=== PATIENT | male | born 2000 | race Caucasian/White ===

== ENCOUNTER 2021-06-14 16:03 | Emergency (ER) | payer MEDICAID, SELFPAY ==
--- NOTE | ~2021-06-14 | CT_ITS ---
EXAMINATION: CT CERVICAL SPINE WITHOUT CONTRAST CLINICAL INFORMATION: Fall. COMPARISON: None TECHNIQUE: Axial images obtained through the cervical spine. Coronal and sagittal reformatted images are performed at the CT scanner This CT examination was performed using dose optimization techniques as appropriate, variously including the following: *Automated exposure control *Adjustment of mA and/or kV according to patient size (this includes techniques or standardized protocols for targeted exams where dose is matched to indication/reason for exam; i.e. extremities or head) *Use of iterative reconstruction technique DLP: 423 mGy-cm FINDINGS: Cervical vertebrae have normal height and alignment. No fracture. No prevertebral soft tissue swelling. Cervical disc heights are normal. The facet joints are normal. Central canal maintained. Neural foramina are open. No abnormalities soft tissues of neck. Lung apices normally aerated. CT/CT cervical spine wo con IMPRESSION: Normal CT cervical spine. Fleischner guidelines were followed.
--- NOTE | ~2021-06-14 | CT_ITS ---
EXAMINATION: CT HEAD WITHOUT CONTRAST CLINICAL INFORMATION: Headache. Dizziness. Head trauma. Fall. COMPARISON: None TECHNIQUE: Contiguous axial imaging was performed from the skull base to vertex without intravenous administration of contrast. Coronal and sagittal reformatted images are performed at CT scanner This CT examination was performed using dose optimization techniques as appropriate, variously including the following: *Automated exposure control *Adjustment of mA and/or kV according to patient size (this includes techniques or standardized protocols for targeted exams where dose is matched to indication/reason for exam; i.e. extremities or head) *Use of iterative reconstruction technique DLP: 716 mGy-cm FINDINGS: There are multiple sites of bilateral intraparenchymal acute hemorrhage. . Largest intraparenchymal hemorrhage is in the inferior right frontal lobe. This measures about 4.8 cm AP. There is mass effect from this parenchymal bleed with a right to left shift of the midline structures about 1 cm. There are additional multiple focal parenchymal hemorrhages in the right frontal lobe and parietal lobe. There is also a small hemorrhage in the posterior right temporal lobe. There are smaller scattered intraparenchymal hemorrhage on the left. There is a small focal parenchymal hemorrhage in the left parietal-occipital lobe measuring about 1 cm. Smaller but multifocal areas of hemorrhage present in the inferior left frontal lobe. There is a scalp hematoma the posterior left vertex. No skull fracture. Leija-white differentiation is maintained. No hydrocephalus. CT/CT head/brain wo con IMPRESSION: Multifocal bilateral supratentorial intraparenchymal hemorrhage. There is midline shift from right to left of about 1 cm. This critical result was discussed with Dr. Self on 06/14/2021, 9:07 PM and it was ascertained that the content and urgency of the report was understood at the time of direct communication.
[2021-06-14 16:31] VITALS: BP 136/92; PULSE 47; RESP 18; TEMP 36.9; O2SAT 100; BMI 22.4
--- NOTE | 2021-06-14 20:48 | ED.HEATRA ---
HPI - Head Injury General Chief complaint: Head Injury Stated complaint: head INJ/vomiting Time Seen by Provider: 06/14/21 20:25 Source: patient Mode of arrival: ambulatory Limitations: no limitations History of Present Illness HPI Narrative: Patient comes to the emergency room complaining of a head injury. Earlier today he was riding an electric skateboard. This happened around 14:20. Patient hit a rock, fell backwards and hit the side of his head, he was not wearing helmet. Patient is not sure if he lost consciousness. Patient has been having a headache since then and has vomited multiple times. The mother states that he is talking a bit slower than usual but otherwise patient has no neurological deficits. Before arriving to the emergency room, patient was taken by his mother to the primary care physician. He was instructed to come to the emergency room for further evaluation. Related Data Home Medications Medication Instructions Recorded Confirmed No Known Home Meds 06/14/21 06/14/21 Allergies Allergy/AdvReac Type Severity Reaction Status Date / Time No Known Allergies Allergy Unverified 11/26/19 17:26 Review of Systems Review of Systems: Constitutional : No Weight loss, No Fever, No Chills, No Night Sweats, No Fatigue, No Malaise ENT/Mouth : No Hearing loss, No Ear Pain, No Nasal Congestion, No Sinus Pain, No Hoarseness, No sore throat, No Rhinorrhea, No Swallowing Difficulty Eyes: No Eye Pain, No Swelling, No Redness, No Foreign Body, No Discharge, No Vision Changes Cardiovascular : No Chest Pain, No SOB, No Dyspnea on Exertion, No Orthopnea, No Edema, No Palpitations Respiratory : No Cough, No Sputum, No Wheezing, No Smoke Exposure, No Dyspnea Gastrointestinal : No Nausea, No Vomiting, No Diarrhea, No Constipation, No abdominal Pain, No Hematochezia, No Melena Genitourinary : no irregular bleeding, No Dysuria, No Urinary Frequency, No Hematuria, No Urinary Incontinence, No Urgency, No Flank Pain, No Urinary Flow Changes, No Hesitancy Musculoskeletal : No joint pain, No Myalgias, No Joint Swelling Skin : No Skin Lesions, No rash Neuro : No Weakness, No Numbness, No Paresthesias, No Loss of Consciousness, No Dizziness 1 complaining of headache Psych : No Anxiety/Panic, No Depression, No SI/HI/AH/VH, No Social Issues, Heme/Lymph: No Bruising, No Bleeding,No Lymphadenopathy Endocrine : No Polyuria, No Polydipsia, No Temperature Intolerance ON LICENSE OF [facility] Past Medical History Medical History No known health problems Social History Social History Alcohol intake: current Alcohol intake frequency: 0-2 drinks per day Advance Directives: No Advance Directives Information Provided: No Physical Exam Vital Signs: Vital Signs: Last Vital Signs Temp 98.5 F 06/14/21 21:13 Pulse 60 06/14/21 21:22 Resp 12 06/14/21 21:22 BP 123/58 L 06/14/21 21:22 Pulse Ox 98 06/14/21 21:22 BMI result Body Mass Index 22.4 Const: Other: Appearance: Alert. Oriented X3. No acute distress. Eyes: Pupils equal, round and reactive to light. ENT: Pharynx normal. Neck: Normal inspection. Neck supple. No lymph nodes noted. No crepitus CVS: Normal heart rate and rhythm. Pulses normal. Normal S1 and S2 Respiratory: No respiratory distress. Breath sounds normal. No Wheezing. No rales Abdomen: Soft and nontender. No rigidity. No distention. Skin: Skin warm and dry. Normal skin color. Normal skin turgor. Extremities: Left hand strength 3/5, and right hand 5/5, bilateral 5/5 strength in lower extremities Neuro: Oriented X 3. No motor deficit. No sensory deficit. Moving all extremities. No slurred speech. CN 2 through 12 grossly intact Psych: calm, cooperative, normal affect Course Course Course Narrative: Patient's GCS is 15, patient ambulated from the waiting room to his room with steady gait Complaining of mild headache, patient was given 1 dose of Zofran and 1 mg of morphine. Patient is a bit somnolent but easily arousable. Patient conversing with his mother. Patient states that other than having headache and feeling nauseous, he feels otherwise well I discussed the diagnosis with the patient his mother, patient is being transferred to [facility]. Dr. Bustillos is the accepting physician, patient is being transferred to ED to ED MDM - Head Injury Lab Data Result diagrams: 06/14/21 20:49 06/14/21 20:49 Labs: Lab Results 06/14/21 06/14/21 06/14/21 Range/Units 20:49 20:49 20:49 WBC 17.7 H (4.8-10.8) X10*3/uL RBC 4.55 L (4.60-5.80) X10*6/uL Hgb 14.5 (14.0-18.0) g/dl Hct 42.5 (42.0-52.0) % MCV 93.4 (80.0-98.0) fL MCH 31.9 (27.0-33.0) pg MCHC 34.1 (31.0-36.0) g/dl RDW 12.1 (11.0-16.0) % Plt Count 233 (160-400) X10*3/uL MPV 9.7 (9.4-12.4) fL Immature Gran % (Auto) 0.6 H (0.0-0.4) % Neut % (Auto) 88.9 H (45-73) % Lymph % (Auto) 4.3 L (20-40) % [place] % (Auto) 5.9 (2-11) % Eos % (Auto) 0.1 (0-4) % Baso % (Auto) 0.2 (0-2) % Lymph # (Auto) 0.8 L (1.2-4.9) X10*3/uL [place] # (Auto) 1.1 (0.1-1.2) X10*3/uL Eos # (Auto) 0.0 (0.0-0.4) X10*3/uL Baso # (Auto) 0.0 (0.0-0.2) X10*3/uL Abs Immat Gran (auto) 0.10 H (0.00-0.03) X10*3/uL Absolute Neuts (auto) 15.7 H (2.0-8.3) x10*3/uL Absolute Nucleated RBC 0.000 (0.0-0.012) X10*3/uL Nucleated RBC % (auto) 0.0 (0.0-0.2) /100WBC PT 10.8 (9.9-13.0) SEC INR 1.0 (0.9-1.1) Sodium 138 (135-145) mmol/L Potassium 3.8 (3.3-5.1) mmol/L Chloride 102 (96-108) mmol/L Carbon Dioxide 23 (22-29) mmol/L Anion Gap 17 (12-20) BUN 9 (9-16) mg/dL Creatinine 0.80 (0.5-1.4) mg/dL Estim Creat Clear Calc 143.7 Estimated GFR > 60 Random Glucose 116 H (60-115) mg/dL Calcium 9.4 (8.4-10.2) mg/dL Total Bilirubin 0.9 (0.0-1.0) mg/dL AST 41 H (5-37) U/L ALT 35 (0-40) U/L Alkaline Phosphatase 60 (39-117) U/L Total Protein 8.1 H (6.5-8.0) g/dL Albumin 5.1 H (3.5-5.0) g/dL Ethyl Alcohol mg/dL COVID-19 (LORE) (Negative) COVID-19 Clin Com 06/14/21 06/14/21 Range/Units 20:49 20:49 WBC (4.8-10.8) X10*3/uL RBC (4.60-5.80) X10*6/uL Hgb (14.0-18.0) g/dl Hct (42.0-52.0) % MCV (80.0-98.0) fL MCH (27.0-33.0) pg MCHC (31.0-36.0) g/dl RDW (11.0-16.0) % Plt Count (160-400) X10*3/uL MPV (9.4-12.4) fL Immature Gran % (Auto) (0.0-0.4) % Neut % (Auto) (45-73) % Lymph % (Auto) (20-40) % [place] % (Auto) (2-11) % Eos % (Auto) (0-4) % Baso % (Auto) (0-2) % Lymph # (Auto) (1.2-4.9) X10*3/uL [place] # (Auto) (0.1-1.2) X10*3/uL Eos # (Auto) (0.0-0.4) X10*3/uL Baso # (Auto) (0.0-0.2) X10*3/uL Abs Immat Gran (auto) (0.00-0.03) X10*3/uL Absolute Neuts (auto) (2.0-8.3) x10*3/uL Absolute Nucleated RBC (0.0-0.012) X10*3/uL Nucleated RBC % (auto) (0.0-0.2) /100WBC PT (9.9-13.0) SEC INR (0.9-1.1) Sodium (135-145) mmol/L Potassium (3.3-5.1) mmol/L Chloride (96-108) mmol/L Carbon Dioxide (22-29) mmol/L Anion Gap (12-20) BUN (9-16) mg/dL Creatinine (0.5-1.4) mg/dL Estim Creat Clear Calc Estimated GFR Random Glucose (60-115) mg/dL Calcium (8.4-10.2) mg/dL Total Bilirubin (0.0-1.0) mg/dL AST (5-37) U/L ALT (0-40) U/L Alkaline Phosphatase (39-117) U/L Total Protein (6.5-8.0) g/dL Albumin (3.5-5.0) g/dL Ethyl Alcohol < 10 mg/dL COVID-19 (LORE) Negative (Negative) COVID-19 Clin Com See Note Imaging Data CT scan - head: Radiologist's impression: here are multiple sites of bilateral intraparenchymal acute hemorrhage. . Largest intraparenchymal hemorrhage is in the inferior right frontal lobe. This measures about 4.8 cm AP. There is mass effect from this parenchymal bleed with a right to left shift of the midline structures about 1 cm. There are additional multiple focal parenchymal hemorrhages in the right frontal lobe and parietal lobe. There is also a small hemorrhage in the posterior right temporal lobe. There are smaller scattered intraparenchymal hemorrhage on the left. There is a small focal parenchymal hemorrhage in the left parietal-occipital lobe measuring about 1 cm. Smaller but multifocal areas of hemorrhage present in the inferior left frontal lobe. There is a scalp hematoma the posterior left vertex. No skull fracture. Leija-white differentiation is maintained. No hydrocephalus. CT/CT head/brain wo con IMPRESSION: Multifocal bilateral supratentorial intraparenchymal hemorrhage. There is midline shift from right to left of about 1 cm. Critical Care Time Critical Care Time Critical Care Time: Yes Total Critical Care Time: 45 Attestation: Please follow-up with your primary care physician tomorrow. If you have any worsening or new symptoms, please return to the emergency room or call 911 Discharge Plan Discharge Clinical Impression: Traumatic cerebral intraparenchymal hemorrhage Patient Disposition: Xfer [facility] Transfer Details: [facility] Prescriptions: No Action No Known Home Meds 0RF
[2021-06-14 20:55] LABS: MANUAL DIFF FLAG NO
[2021-06-14 20:58] VITALS: RESP 16
[2021-06-14] MEDS: ondansetron HCL 4 MG/2 ML VIAL IVPUSH (20:58)
[2021-06-14] MEDS: Morphine Sulfate 2 MG/ML CARTRIDGE 1 MG IVPUSH (20:58)
[2021-06-14 21:10] LABS: Basophils Percent Auto 0.2 % (0-2); Eosinophils Percent Auto 0.1 % (0-4); Hematocrit 42.5 % (42.0-52.0); Hemoglobin 14.5 g/dl (14.0-18.0); Imm Gran Pct Auto 0.6 % (0.0-0.4); Lymphocytes Absolute Auto 0.8 X10*3/uL (1.2-4.9); Lymphocytes Percent Auto 4.3 % (20-40); Mean Corpuscular HGB Conc 34.1 g/dl (31.0-36.0); Mean Corpuscular Hemoglobin 31.9 pg (27.0-33.0); Mean Corpuscular Volume 93.4 fL (80.0-98.0); Mean Platelet Volume 9.7 fL (9.4-12.4); Monocytes Absolute Auto 1.1 X10*3/uL (0.1-1.2); Monocytes Percent Auto 5.9 % (2-11); Neutrophils Absolute Auto 15.7 x10*3/uL (2.0-8.3); Neutrophils Percent Auto 88.9 % (45-73); Platelet Count 233 X10*3/uL (160-400); Red Blood Count 4.55 X10*6/uL (4.60-5.80); Red Cell Distribution Width 12.1 % (11.0-16.0); White Blood Count 17.7 X10*3/uL (4.8-10.8)
[2021-06-14 21:12] LABS: COVID-19 Test Negative (Negative)
[2021-06-14 21:13] VITALS: BP 123/60; PULSE 56; RESP 18; TEMP 36.9; O2SAT 98
[2021-06-14 21:13] LABS: Ethanol < 10 mg/dL
[2021-06-14 21:16] LABS: Alanine Aminotransferase 35 U/L (0-40); Albumin Level 5.1 g/dL (3.5-5.0); Alkaline Phosphatase 60 U/L (39-117); Anion Gap 17 (12-20); Aspartate Amino Transferase 41 U/L (5-37); Bilirubin Total 0.9 mg/dL (0.0-1.0); Blood Urea Nitrogen 9 mg/dL (9-16); Calcium 9.4 mg/dL (8.4-10.2); Carbon Dioxide 23 mmol/L (22-29); Chloride 102 mmol/L (96-108); Creatinine Clr Calc Pharmacy 143.7; Estimated Glomerular Filt Rate > 60; Glucose Random 116 mg/dL (60-115); Potassium 3.8 mmol/L (3.3-5.1); Sodium 138 mmol/L (135-145); Total Protein 8.1 g/dL (6.5-8.0)
[2021-06-14 21:22] VITALS: BP 123/58; PULSE 60; RESP 12; O2SAT 98
[2021-06-14 21:24] LABS: Prothrombin Time 10.8 SEC (9.9-13.0)
--- NOTE | 2021-06-14 21:46 | PC.NURSE ---
report called to miko at [facility]. ALS here to transport patient to [facility] ER. all belongings sent with mom
== END 2021-06-14 21:48 | disposition short-term general hospital (02) ==
PROVIDERS: Physician Assistant; Emergency Provider Emergency Medicine
DX: S06.379A Contusion, laceration, and hemorrhage of cerebellum with loss of consciousness of unspecified duration, initial encounter (principal); R40.2410 Glasgow coma scale score 13-15, unspecified time; G44.309 Post-traumatic headache, unspecified, not intractable; M54.2 Cervicalgia; W01.0XXA Fall on same level from slipping, tripping and stumbling without subsequent striking against object, initial encounter; Y93.9 Activity, unspecified; Y92.9 Unspecified place or not applicable; Y99.9 Unspecified external cause status; Z20.822 Contact with and (suspected) exposure to COVID-19
CPT/HCPCS: 36415; 70450; 72125; 80053; 82077; 85025; 85610; 87635; 96374; 96375; 99285; 99291; J2270; J2405

== ENCOUNTER 2023-05-29 11:04 | Outpatient (REF) | payer MEDICAID, SELFPAY ==
[2023-05-29 13:26] LABS: Anion Gap 13 (12-20); Blood Urea Nitrogen 10 mg/dL (9-16); Calcium 9.6 mg/dL (8.4-10.2); Carbon Dioxide 27 mmol/L (22-29); Chloride 103 mmol/L (96-108); Estimated Glomerular Filt Rate > 60; Glucose Random 119 mg/dL (60-115); Potassium 4.4 mmol/L (3.3-5.1); Sodium 139 mmol/L (135-145)
[2023-05-29 13:44] LABS: TSH reflex Free T4 0.68 uIU/mL (0.32-4.0)
[2023-05-29 14:37] LABS: Folate 6.3 ng/mL (> or = 4.0); Vitamin B12 379 pg/mL (200-900)
[2023-06-02 09:14] LABS: RPR Rapid Plasma Reagin NON-REACTIVE (NON-REACTIVE)
[2023-06-04 14:28] LABS: Vitamin B1 <6 nmol/L (8-30)
== END 2023-05-29 11:05 | disposition home or self-care (01) ==
LOC: HO.CHCLDS 11:04
PROVIDERS: Visit Provider Internal Medicine
DX: F41.9 Anxiety disorder, unspecified (principal); R41.3 Other amnesia
CPT/HCPCS: 36415; 80048; 82607; 82746; 84425; 84443; 86592

== ENCOUNTER 2024-10-07 13:11 | Outpatient (REF) | payer MEDICAID, SELFPAY ==
--- OUTSIDE RECORDS SUMMARY | 2024-10-07 13:43 | XMS_ITS | Encounter Summary ---
Author Organization [employer] Address [address] [facility] [address] [place] [address] Care Team Providers Care Older Worker Specialist Name Role Phone Kelly Palm MD Primary Care Provider [phone] Encounter Details Date Type Department Care Team ([facility] st Contact Info) Description 06/05/2023 Orders Only [facility] MED & PEDS [address] [place], [place] [phone] Kelly Palm MD [address] [place], [place] [phone] Vitamin B1 deficiency (Primary Dx) Social History Tobacco Use Types Packs/Day Years Used Date Smoking Tobacco: Every Day Cigarettes Smokeless Tobacco: Never Housing Stability Answer Date Recorded What is your housing situation today? I have hany mclean 05/28/[address] you li ve. Do you have problems with any of the following? None of the above 05/28/2023 Food Insecurity Answer Date Recorded Within the past 12 months, y ou worried that your food would run out before you got money to buy more: Never True 02/13/2023 Within the past 12 months,th e food you bought just didn't last and you didn't have enough money to get more: Never True 08/2022 Transportation Answer Date Recorded In the past 12 months, has l ack of transportation kept you from medical appts, meetings, work or from getting things needed for daily living? No 12/28/2022 Utilities Answer Date Recorded In the past 12 months, has t he electric, gas, oil or water company threatened to shut off services in your home? No 12/28/2022 Sex and Gender Information Value Date Recorded Sex Assigned at Male 01/08/2022 10:19 AM EDT Legal Sex Male 10:19 AM EDT Gender Identity Choose not to disclose 10:19 AM EDT Sexual Orientation Choose not to disclose 2021 10:19 AM EDT documented as of this encounter Plan of Treatment Not on file documented as of this encounter Visit Diagnoses Diagnosis Vitamin B1 deficiency- Primary Other and unspecified manifestations of thiamine deficiency documented in this encounter Care Teams Older Worker Specialist Relationship Specialty Start Date End Date Kelly Palm MD [address] [place] [id number] PCP - General Internal Medicine 05/29/23 Viola David Teaching YoungTransfer Agent 08/12/24 documented as of this encounter
--- OUTSIDE RECORDS SUMMARY | 2024-10-07 13:43 | XMS_ITS | Clinical Summary ---
Author Organization [facility] Address [address] [place] [id number] Phone Care Team Providers Care Body Mechanic Apprentice Name Role Phone Unknown, Unknown Primary Care Provider Yaima mccray Social History Tobacco Use Types Packs/Day Years Used Date Smoking Tobacco: Never Assessed Sex and Gender Information Value Date Recorded Sex Assigned at Not on file Legal Sex Male 12:51 PM EDT Gender Identity Not on file Sexual Orientation Not on file Plan of Treatment Not on file Medical Devices Not on file Insurance [facility] C[facility] C[facility] C[facility] C[facility] C3 ACO Care Teams Body Mechanic Apprentice Relationship Specialty Start Date End Date Unknown, Unknown, PCP - General 06/27/21 Additional Source Comments The information contained in this document represents components of the legal health record. It is not the complete legal health record.[facility]
[2024-10-07 15:06] LABS: Alanine Aminotransferase 33 U/L (0-40); Albumin Level 4.8 g/dL (3.5-5.0); Alkaline Phosphatase 66 U/L (39-117); Anion Gap 14 (12-20); Aspartate Amino Transferase 30 U/L (5-37); Blood Urea Nitrogen 10 mg/dL (9-16); Calcium 8.8 mg/dL (8.4-10.2); Carbon Dioxide 27 mmol/L (22-29); Chloride 108 mmol/L (96-108); Estimated Glomerular Filt Rate > 60; Magnesium 2.3 mg/dL (1.6-2.6); Potassium 3.9 mmol/L (3.3-5.1); Sodium 145 mmol/L (135-145); Total Protein 7.3 g/dL (6.5-8.0)
[2024-10-07 15:41] LABS: Folate 3.9 ng/mL (> or = 4.0); Vitamin B12 232 pg/mL (200-900)
== END 2024-10-07 13:12 | disposition home or self-care (01) ==
LOC: HO.CHCLDS 13:11
PROVIDERS: Visit Provider Internal Medicine
DX: S06.5X9S Traumatic subdural hemorrhage with loss of consciousness of unspecified duration, sequela (principal); G40.909 Epilepsy, unspecified, not intractable, without status epilepticus
CPT/HCPCS: 36415; 80053; 82607; 82746; 83735

== ENCOUNTER 2024-10-24 08:47 | Outpatient (REF) | payer MEDICAID, SELFPAY ==
--- NOTE | ~2024-10-24 | CT_ITS ---
CLINICAL HISTORY: Numbness of the left upper limb on and off. CT head without contrast Comparison: CT/NC/SR - CT HEAD/BRAIN WO CON - 06/14/21 20:36 EDT Findings: No intra-axial mass, midline shift, hydrocephalus, or acute hemorrhage. Postsurgical changes related to right frontoparietal craniotomy/cranioplasty. Right frontal lobe multifocal areas of encephalomalacia corresponds to prior intraparenchymal hematomas. There is no sinus or mastoid fluid. The orbits are unremarkable. No skull fracture. IMPRESSION: No acute intracranial disease. Postsurgical changes related to right frontoparietal craniotomy/cranioplasty. Right frontal lobe multifocal areas of encephalomalacia corresponds to prior intraparenchymal hematomas. This document has been electronically signed by: Amira Pulido MD on 10/26/2024 23:01:31
--- OUTSIDE RECORDS SUMMARY | 2024-10-24 08:51 | XMS_ITS | Encounter Summary ---
Author Organization [employer] Address [address] [facility] [address] [place] [address] Care Team Providers Care Director Hr Communications Name Role Phone Kelly Palm MD Primary Care Provider [phone] Encounter Details Date Type Department Care Team ([facility] Contact Info) Description 10/09/2024 Orders Only [facility] CHC MED & PEDS [address] [place], [place] [phone] Kelly Palm MD [address] [place], [place] [phone] Social History Tobacco Use Types Packs/Day Years [...] as of this encounter Plan of Treatment Upcoming Encounters Date Type Department Care Team ([facility] st Contact Info) Description 12/09/2024 10:00 AM EDT Office Visit [facility] MED & PEDS [address] [place] [address] Kelly Palm MD [address] [place] [phone] documented as of this encounter Visit Diagnoses Not on filedocumented in this encounter Care Teams Director Hr Communications Relationship Specialty Start Date End Date Kelly Palm MD [address] [place] [address] PCP - General Internal Medicine 05/29/23 Viola David Window Unit Air Conditioning MechanicDirector Clinical Research 08/12/24 documented as of this encounter
--- OUTSIDE RECORDS SUMMARY | 2024-10-24 08:51 | XMS_ITS | Clinical Summary ---
Author Organization [facility] Address [address] [place] [phone] Phone Care Team Providers Care Talent Acquisition Coordinator Name Role Phone Unknown, Unknown Primary Care [...] file Medical Devices Not on file Insurance [facility] C3 ACO [facility] C3 ACO [facility] C3 ACO [facility] C3 ACO [facility] C3 ACO [facility] C3 ACO [facility] C3 ACO Care Teams Talent Acquisition Coordinator Relationship Specialty Start Date End Date Unknown, Unknown, PCP - General 06/27/21 Additional Source Comments The information contained in this document represents components of the legal health record. It is not the complete legal health record.[facility]
== END 2024-10-24 08:48 | disposition home or self-care (01) ==
LOC: HO.CT 08:47
PROVIDERS: PCP Internal Medicine; Visit Provider Internal Medicine
DX: S06.5X9S Traumatic subdural hemorrhage with loss of consciousness of unspecified duration, sequela (principal); G40.909 Epilepsy, unspecified, not intractable, without status epilepticus
CPT/HCPCS: 70450

== ENCOUNTER → 2024-10-24 08:51 | Outpatient (BNV) | payer MEDICAID, SELFPAY | PROVIDERS: PCP Internal Medicine; Visit Provider Student in an Organized Health Care Education/Training Program | DX: R20.2 Paresthesia of skin (principal) | CPT/HCPCS: 70450 ==

== ENCOUNTER 2024-12-09 10:39 | Outpatient (REF) | payer MEDICAID, SELFPAY ==
--- OUTSIDE RECORDS SUMMARY | 2024-12-09 10:00 | XMS_ITS | Encounter Summary ---
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, sequela (CMS/HCC); Unintentional weight loss; Anxiety; Annual physical exam Social History Tobacco Use Types Packs/Day Years [...] AM EDT documented as of this encounter Last Filed Vital Signs Vital Sign Reading Time Taken Comments Blood Pressure 122/80 12/09/2024 9:56 AM EDT Pulse 72 12/09/2024 9:56 AM EDT Temperature 36.9 C (98.4 F) 12/09/2024 9:56 AM EDT Respiratory Rate 20 12/09/2024 9:56 AM EDT Oxygen Saturation 98% 12/09/2024 9:56 AM EDT Inhaled Oxygen Concentration - - Weight 71 kg (156 lb 9.6 oz) 12/09/2024 9:56 AM EDT Height 175.3 cm (5' 9 ) 12/09/2024 9:56 AM EDT Body Mass Index 23.13 12/09/2024 9:56 AM EDT documented in this encounter Progress Notes * Kelly Palm MD - 12/09/2024 10:00 AM EDT SUBJECTIVE Julio Miller is a 24 y.o. adult who presents for Annual Exam. HPI Overall feels well. No seizure in the last 3 months. Patient is otherwise compliant to his medication which is well-tolerated He is concerned about an unintentional weight loss. Weight on 08/19/2023: 186 pound, BMI 27.55 Weight on 12/09/2024: 156 pound, BMI 23.13 Problem List[1] Allergies[2] Medications Ordered Prior to Encounter[3] Review of Systems Constitutional: Negative for activity change, appetite change, chills and diaphoresis. HENT: Negative for dental problem, drooling and ear discharge. Eyes: Negative for pain and itching. Respiratory: Negative for cough, choking and chest tightness. Cardiovascular: Negative for palpitations and leg swelling. Gastrointestinal: Negative for abdominal pain, anal bleeding and blood in stool. Endocrine: Negative for cold intolerance and heat intolerance. Genitourinary: Negative for flank pain, frequency and genital sores. Musculoskeletal: Negative for back pain. Neurological: Negative for light-headedness, numbness and headaches. Psychiatric/Behavioral: Negative for agitation, confusion and decreased concentration. OBJECTIVE Vitals: 12/09/24 0956 BP: 122/80 Pulse: 72 Resp: 20 Temp: 98.4 ??F (36.9 ??C) TempSrc: Oral SpO2: 98% Weight: 156 lb 9.6 oz (71 kg) Height: 5' 9 (1.753 m) Physical Exam Constitutional: General: Julio is not in acute distress. Appearance: Normal appearance. Julio is not ill-appearing, toxic-appearing or diaphoretic. HENT: Head: Normocephalic. Nose: Nose normal. Eyes: Pupils: Pupils are equal, round, and reactive to light. Cardiovascular: Rate and Rhythm: Normal rate. Pulmonary: Effort: Pulmonary effort is normal. Breath sounds: No stridor. Musculoskeletal: Cervical back: Normal range of motion. Neurological: General: No focal deficit present. Mental Status: Julio is alert. Psychiatric: Mood and Affect: Mood normal. Assessment/Plan Assessment/Plan Diagnoses and all orders for this visit: Seizure disorder (CMS/HCC) ([facility]) Comments: Continue w/ [facility] follow up as scheduled. 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 Unintentional weight loss - CBC auto differential; Future - Comprehensive Metabolic Panel; Future - Lipid Panel, Standard; Future - TSH with Reflex to Free T4; Future - Hepatitis C Antibody with Reflex to HCV, RNA, Quantitative, Real-Time PCR; Future - Hepatitis B Surface Antibody, Qualitative; Future - HIV-1/2 Antigen and Antibodies, Fourth Generation, with Reflexes; Future Unclear etiology of the unintentional weight loss. Patient states he has good appetite. Admits eating only at night. He can spend the day working without eating. If the blood work is unremarkable I will refer him to be evaluated and get guidance from a cotton acreage measurer. Anxiety Comments: continue w/ buspirone Orders: - busPIRone (Buspar) 10 MG tablet; Take 1 tablet (10 mg) by mouth 3 times daily. Annual physical exam Comments: Normal cardiopulmonary exam. Patient is to maintain a healthy and balanced diet [1] Patient Active Problem List Diagnosis Subdural hematoma, post-traumatic (CMS/HCC) (HCC) Smoker S/P appy Midline shift of brain due to hematoma (CMS/HCC) (HCC) Intraparenchymal hematoma of brain (CMS/HCC) (HCC) Fall Seizure disorder (CMS/HCC) (HCC) Insomnia Chronic intractable headache Dietary counseling Anxiety disorder due to medical condition Housing problems [2] No Known Allergies [3] Current Outpatient Medications on File Prior to Visit Medication Sig Dispense Refill amitriptyline (Elavil) 25 MG tablet TAKE 1 TABLET BY MOUTH AT BEDTIME 90 tablet 0 cyancobalamine (Vitamin B-12) 250 MCG tablet Take 1 tablet (250 mcg) by mouth Once per day. 30 tablet 11 diphenhydrAMINE (BENADryl) 25 MG tablet Take 1 tablet (25 mg) by mouth every 8 (eight) hours if needed for itching. 90 tablet 0 folic acid (Folvite) 1 MG tablet Take 1 tablet (1 mg) by mouth Once per day. 30 tablet 11 levETIRAcetam (Keppra) 1000 MG tablet Take 2 tablets by mouth 2 times daily. naproxen (Naprosyn) 500 MG tablet TAKE 1 TABLET BY MOUTH TWICE A DAY FOR 14 DAYS NEEDED FOR HEADACHE pyridoxine (B-6) 100 MG tablet 2 tabs once a day. 180 tablet 2 TEGretol-XR 200 MG 12 hr tablet TAKE 1 TABLET BY MOUTH TWICE A DAY 60 tablet 2 [DISCONTINUED] busPIRone (Buspar) 10 MG tablet Take 1 tablet (10 mg) by mouth 3 times daily. 90 tablet 11 No current facility-administered medications on file prior to visit. documented in this encounter Plan of Treatment Scheduled Orders Name Type Priority Associated Diagnoses Orde r Schedule CBC auto differential Lab Routine Seizure disorder (CMS/HCC) Unintentional weight loss Expected: 12/09/2024 (Approximate), Expires: 12/09/2025 Comprehensive Metabolic Panel Lab Routine Seizure disorder (CMS/HCC) Unintentional weight loss Expected: 12/09/2024 (Approximate), Expires: 12/09/2025 Lipid Panel, Standard Lab Routine Seizure disorder (CMS/HCC) Unintentional weight loss Expected: 12/09/2024 (Approximate), Expires: 12/09/2025 TSH with Reflex to Free T4 Lab Routine Seizure disorder (CMS/HCC) Unintentional weight loss Expected: 12/09/2024 (Approximate), Expires: 12/09/2025 Hepatitis C Antibody with Reflex to HCV, RNA, Quantitative, Real-Time PCR Lab Routine Unintentional weight loss Expected: 12/09/2024, Expires: 12/09/2025 Hepatitis B Surface Antibody, Qualitative Lab Routine Unintentional weight loss Expected: 12/09/2024 (Approximate), Expires: 12/09/2025 HIV-1/2 Antigen and Antibodies, Fourth Generation, with Reflexes Lab Routine Unintentional weight loss Expected: 12/09/2024 (Approximate), Expires: 12/09/2025 documented as of this encounter Visit Diagnoses Diagnosis Seizure disorder (CMS/HCC) (HCC)- Primary Unspecified epilepsy without mention of intractable epilepsy Post-traumatic subdural hematoma with loss of consciousness, sequela (CMS/HCC) Unintentional weight loss Loss of weight Anxiety Anxiety state, unspecified Annual physical exam Routine general medical examination at a health care facility documented in this encounter Care Teams Technical Designer Relationship Specialty Start Date End Date Kelly Palm MD [address] [place] [id number] PCP - General Internal Medicine 05/29/23 Viola David [place] RipperHose Inspector 08/12/24 documented as of this encounter
--- OUTSIDE RECORDS SUMMARY | 2024-12-09 12:15 | XMS_ITS | Encounter Summary ---
Author Organization [employer] Address [address] [facility] [address] [address] Care Team Providers Care [employer] Air[employer] Officer Name Role Phone Kelly Palm MD Primary Care Provider [phone] Encounter Details Date Type Department Care Team ([facility] Contact Info) Description 09/18/2024 Telephone [facility] [address] [place], [place] [phone] Kelly Palm MD [address] [place] [address] Social History Tobacco Use Types Packs/Day Years [...] on filedocumented in this encounter Care Teams [employer] Officer Relationship Specialty Start Date End Date Kelly Palm MD [address] [place] [id number] PCP - General Internal Medicine 05/29/23 Viola David Side Panel Hanger[employer]ers Supervisor 08/12/24 documented as of this encounter
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
--- OUTSIDE RECORDS SUMMARY | 2024-12-09 12:15 | XMS_ITS | Encounter Summary ---
Author Organization [employer] Address [address] [address] Care Team Providers Care Booth Operator Name Role Phone Kelly Palm MD Primary Care Provider [phone] Reason for Visit * Reason Comments Med Refill Encounter Details Date Type Department Care Team (Late st Contact Info) Description 09/17/2024 Refill [facility] [address] [place] [address] Kelly Palm MD [address] [place], [place] [phone] Social History Tobacco Use Types Packs/Day Years [...] on filedocumented in this encounter Care Teams Booth Operator Relationship Specialty Start Date End Date Kelly Palm MD [address] [place] [phone] PCP - General Internal Medicine 05/29/23 Viola David Tumbling And Rolling SupervisorInspector Boiler 08/12/24 documented as of this encounter
--- OUTSIDE RECORDS SUMMARY | 2024-12-09 12:15 | XMS_ITS | Clinical Summary ---
Author Organization [employer] Includes [facility] Address [address] [place] [phone] Phone Care Team Providers Care Systems Planner Name Role Phone Unknown, Unknown Primary Care [...] file Medical Devices Not on file Insurance [facility] [employer] [facility] [employer] [facility] [employer] C[employer]CO [facility] C3 [employer]CO [facility] C3 ACO Care Teams Systems Planner Relationship Specialty Start Date End Date Unknown, Unknown, PCP - General 06/27/21 Additional Source Comments The information contained in this document represents components of the legal health record. It is not the complete legal health record.[facility]
--- OUTSIDE RECORDS SUMMARY | 2024-12-09 12:15 | XMS_ITS | Encounter Summary ---
Author Organization [employer] Address [address] [place] [address] Care Team Providers Care Deputy Sheriff K9 Handler Name Role Phone Kelly Palm MD Primary Care Provider [phone]- [phone] Reason for Referral * Imaging (Routine) - Closed Specialty Diagnoses / Procedures Referred By Contac t Referred To Contact Radiology Diagnoses Transaminitis Procedures US Abdomen Complete Kelly Palm MD [address] [place] [address] Phone: tel: fax: [address] Phone: tel: fax: Referral ID Status Reason Start Date Expiration Date Visits Re quested Visits Authorized [id number] Closed 01/08/2024 01/07/2025 1 1 Encounter Details Date Type Department Care Team (Late st Contact Info) Description 12/26/2023 Orders Only [facility] [address] [place], [place] [phone] Kelly Palm MD [address] [place], [place] [phone] Post-traumatic subdural hematoma with loss of consciousness, subsequent encounter (Primary Dx); Transaminitis Social History Tobacco Use Types Packs/Day Years [...] as of this encounter Plan of Treatment Scheduled Orders Name Type Priority Associated Diagnoses Orde r Schedule ABO Group And RH Type Lab Routine Post-traumatic subdural hematoma with loss of consciousness, subsequent encounter Expected: 12/27/2023 (Approximate), Expires: 12/26/2024 Hepatitis A,B,C Profile Lab Routine Transaminitis Expected: 01/08/2024, Expires: 01/07/2025 US Abdomen Complete Imaging Routine Transaminitis Expected: 01/08/2024, Expires: 01/07/2025 documented as of this encounter Visit Diagnoses Diagnosis Post-traumatic subdural hematoma with loss of consciousness, subsequent encounter- Primary Transaminitis Nonspecific elevation of levels of transaminase or lactic acid dehydrogenase (LDH) documented in this encounter Care Teams Deputy Sheriff K9 Handler Relationship Specialty Start Date End Date Kelly Palm MD [address] [place] [phone] PCP - General Internal Medicine 05/29/23 Viola David Peoplesoft ConsultantGeneral Clerk 08/12/24 documented as of this encounter
--- OUTSIDE RECORDS SUMMARY | 2024-12-09 12:15 | XMS_ITS | Encounter Summary ---
Author Organization [employer] Address [address] [facility] [address] [place] [address] Care Team Providers Care Clay Dry Press Helper Name Role Phone Kelly Palm MD Primary Care Provider +1- [phone] Encounter Details Date Type Department Care Team ([facility] Contact Info) Description 10/27/2024 Orders Only [facility] [address] [place], [place] [phone] Kelly Palm MD [address] [place], [place] [phone] Social History Tobacco Use Types Packs/Day Years [...] on filedocumented in this encounter Care Teams Clay Dry Press Helper Relationship Specialty Start Date End Date Kelly Palm MD [address] [place] [phone] PCP - General Internal Medicine 05/29/23 Viola David Senior Executive Compensation AnalystLeadlighter 08/12/24 documented as of this encounter
--- OUTSIDE RECORDS SUMMARY | 2024-12-09 12:15 | XMS_ITS | Encounter Summary ---
Author Organization [employer] Address [address] [facility] [address] [place] [address] Care Team Providers Care Testing Specialist Name Role Phone Kelly Palm MD Primary Care Provider [phone]- [phone] Encounter Details Date Type Department Care Team ([facility] Contact Info) Description 10/09/2024 Orders Only [facility]S [address] [place], [place] [phone] Kelly Palm MD [address] [place], [place] [phone] Social History Tobacco Use Types Packs/Day Years [...] on filedocumented in this encounter Care Teams Testing Specialist Relationship Specialty Start Date End Date Kelly Palm MD [address] [place] [phone] PCP - General Internal Medicine 05/29/23 Viola Dvaid Business Office CoordinatorFast Food Supervisor 08/12/24 documented as of this encounter
--- OUTSIDE RECORDS SUMMARY | 2024-12-09 12:15 | XMS_ITS | Encounter Summary ---
Author Organization [employer] Address [address] [facility] [address] [place] [address] Care Team Providers Care Tire Repair Mechanic Name Role Phone Kelly Palm MD Primary Care Provider +1 [phone] Encounter Details Date Type Department Care Team (Latest Contact Info) Description 12/09/2024 Travel Social History Tobacco Use Types Packs/Day Years Used Date Smoking Tobacco: Every Day Cigarettes Smokeless Tobacco: Never Housing Stability Answer Date Recorded What is your housing situation today? I have hanycatherine mclean 05/28/[address] you [...] on filedocumented in this encounter Care Teams Tire Repair Mechanic Relationship Specialty Start Date End Date Kelly Palm MD [address] [place] [phone] PCP - General Internal Medicine 05/29/23 Viola David Plastics Process HandSystem Technologist 08/12/24 documented as of this encounter
--- OUTSIDE RECORDS SUMMARY | 2024-12-09 12:15 | XMS_ITS | Encounter Summary ---
Author Organization [employer] Address [address] [facility] [address] [address] Care Team Providers Care Patient Accounts Manager Name Role Phone Kelly Palm MD Primary Care Provider [phone]- [phone] Encounter Details Date Type Department Care Team ([facility] Contact Info) Description 06/05/2023 Orders Only [facility] [address] [place], [place] [phone] Kelly Palm MD [address] [place], [place] [phone] Vitamin B1 deficiency (Primary Dx) Social History [...] deficiency documented in this encounter Care Teams Patient Accounts Manager Relationship Specialty Start Date End Date Kelly Palm MD [address] [place] [phone] PCP - General Internal Medicine 05/29/23 Viola David Longwall Headgate OperatorSurgeon Assistant 08/12/24 documented as of this encounter
--- OUTSIDE RECORDS SUMMARY | 2024-12-09 12:15 | XMS_ITS | Encounter Summary ---
Author Organization [employer] Address [address] [facility] [address] [place] [address] Care Team Providers Care Jig Grinder Set Up Operator Name Role Phone Kelly Palm MD Primary Care Provider [phone]- [phone] Encounter Details Date Type Department Care Team ([facility] Contact Info) Description 11/13/2023 Orders Only [facility] [address] [place], [place] [phone] Kelly Palm MD [address] [place], [place] [phone] Anxiety Social History Tobacco Use Types Packs/Day Years [...] as of this encounter Visit Diagnoses Diagnosis Anxiety Anxiety state, unspecified documented in this encounter Care Teams Jig Grinder Set Up Operator Relationship Specialty Start Date End Date Kelly Palm MD [address] [place] [phone] PCP - General Internal Medicine 05/29/23 Viola David Molding Line OperatorTriage Registered Nurse 08/12/24 documented as of this encounter
[2024-12-09 14:04] LABS: MANUAL DIFF FLAG NO
[2024-12-09 14:07] LABS: Hematocrit 44.0 % (42.0-52.0); Hemoglobin 15.1 g/dl (14.0-18.0); Imm Gran Abs Auto 0.03 X10*3/uL (0.00-0.03); Imm Gran Pct Auto 0.3 % (0.0-0.4); Lymphocytes Absolute Auto 2.2 X10*3/uL (1.2-4.9); Mean Corpuscular HGB Conc 34.3 g/dl (31.0-36.0); Mean Corpuscular Hemoglobin 33.4 pg (27.0-33.0); Mean Corpuscular Volume 97.3 fL (80.0-98.0); NRBC Abs Auto 0.000 X10*3/uL (0.0-0.012); NRBC Pct Auto 0.0 /100WBC (0.0-0.2); Platelet Count 256 X10*3/uL (160-400); Red Blood Count 4.52 X10*6/uL (4.60-5.80); White Blood Count 9.5 X10*3/uL (4.8-10.8)
[2024-12-09 14:32] LABS: Alanine Aminotransferase 37 U/L (0-40); Albumin Level 4.8 g/dL (3.5-5.0); Alkaline Phosphatase 65 U/L (39-117); Anion Gap 15 (12-20); Aspartate Amino Transferase 46 U/L (5-37); Blood Urea Nitrogen 12 mg/dL (9-16); Calcium 9.3 mg/dL (8.4-10.2); Carbon Dioxide 28 mmol/L (22-29); Chloride 103 mmol/L (96-108); Cholesterol 234 mg/dL (<200); Estimated Glomerular Filt Rate > 60; HDL Cholesterol 109 mg/dL (>40); Potassium 4.6 mmol/L (3.3-5.1); Sodium 141 mmol/L (135-145); Total Protein 7.7 g/dL (6.5-8.0); Triglycerides 220 mg/dL (<150)
[2024-12-10 05:13] LABS: HBS Num1 23.68 mIU/mL (0-7.99); HIV Num 1 0.06 S/CO (0.00-0.99); ~HepC Num1 0.06 S/CO (0.00-0.79); ~Hepatitis B Surface Antibody REACTIVE (Nonreactive); ~Hepatitis C Antibody Nonreactive (Nonreactive)
== END 2024-12-09 10:40 | disposition home or self-care (01) ==
LOC: HO.CHCLDS 10:39
PROVIDERS: Visit Provider Internal Medicine
DX: G40.909 Epilepsy, unspecified, not intractable, without status epilepticus (principal); R63.4 Abnormal weight loss
CPT/HCPCS: 36415; 80053; 80061; 84443; 85025; 86706; 86803; 87389